=== PATIENT | male | born 1985 | race Caucasian/White ===

== ENCOUNTER 2019-03-12 20:57 | Emergency (ER) | payer OTHER ==
--- NOTE | 2019-03-12 22:52 | CRLCR ---
Indication: Chronic left shoulder pain. Technique: Left shoulder 4 views. Comparison: None Findings: Bones: Alignment is normal. No fractures or bone lesions. Joint spaces: Unremarkable. Soft tissues: Unremarkable. Impression: Unremarkable left shoulder. Dictated by Arnie Rosales MD @ Mar 12 2019 10:42PM Signed by Dr. Arnie Rosales @ Mar 12 2019 10:50PM
--- NOTE | 2019-03-12 23:02 | EDM.PDOC ---
ED HPI GENERAL MEDICAL PROBLEM - General Chief Complaint: Upper Extremity Injury/Pain Time Seen by Provider: 03/12/19 21:45 Source of Information: Reports: Patient History Limitations: Reports: No Limitations - History of Present Illness INITIAL COMMENTS - FREE TEXT/NARRATIVE: 33-year-old male with chronic left shoulder pain, worsening over the last several days. He's having trouble sleeping at night because of an intense pain on the lateral aspect of his left shoulder blade. No known injury. He's been to the chiropractor 4 times and it hasn't helped. Onset: Gradual Duration: Week(s): (Symptoms have been ongoing for weeks) Location: Reports: Upper Extremity, Left Quality: Reports: Pressure, Stabbing Worsens with: Reports: Movement (Certain ranges of motion in position) Associated Symptoms: Reports: No Other Symptoms left shoulder Pain Score (Numeric/FACES): 10 - Related Data Allergies Allergy/AdvReac Type Severity Reaction Status Date / Time NSAIDS (Non-Steroidal Allergy Other Verified 03/12/19 21:48 Anti-Inflamma Home Meds: Home Meds Acetaminophen [Pain Reliever] 1,000 mg PO BID 03/12/19 [History] Amphetamine/Dextroamphetamine [Adderall XR] 10 mg PO DAILY 03/12/19 [History] Ibuprofen [Advil] 800 mg PO BID 03/12/19 [History] Past Medical History Cardiovascular History: Reports: Other (See Below) Other Cardiovascular History: 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 Musculoskeletal History: Reports: Fracture Neurological History: Reports: Concussion Psychiatric History: Reports: ADHD - Past Surgical History Cardiovascular Surgical History: Reports: None Musculoskeletal Surgical History: Reports: Other (See Below) Other Musculoskeletal Surgeries/Procedures:: multiple shoulder dislocations Social & Family History - Tobacco Use Smoking Status *Q: Never Smoker - Caffeine Use Caffeine Use: Reports: None - Recreational Drug Use Recreational Drug Use: No Review of Systems - Review of Systems Review Of Systems: See Below Constitutional: Denies: Fever Respiratory: Reports: No Symptoms Cardiovascular: Reports: No Symptoms Skin: Reports: No Symptoms. Denies: Rash Neurological: Denies: Paresthesia Psychiatric: Reports: No Symptoms ED EXAM, GENERAL - Physical Exam Exam: See Below Exam Limited By: No Limitations General Appearance: Alert, No Apparent Distress Respiratory/Chest: No Respiratory Distress, Lungs Clear Cardiovascular: Regular Rate, Rhythm Back Exam: Other (There is palpation tenderness just lateral to the left scapula , no asymmetry or deformity) Extremities: Other (Patient has full active range of motion of the left shoulder but has some pain with external rotation) Neurological: No Motor/Sensory Deficits Course - Vital Signs Last Recorded V/S: Last Vital Signs Temp 97.3 F 03/12/19 21:46 Pulse 90 03/12/19 21:46 Resp 14 03/12/19 21:46 BP 121/79 03/12/19 21:46 Pulse Ox 97 03/12/19 21:46 - Re-Assessments/Exams Free Text/Narrative Re-Assessment/Exam: 03/13/19 02:35 A left shoulder x-ray is normal. Patient was given some Flexeril and 6 hydrocodone, a copy of the x-ray and told to follow-up with orthopedics when he returns home in 4 days. Departure - Departure Time of Disposition: 23:09 Disposition: Home, Self-Care 01 Clinical Impression: Chronic pain in left shoulder - Discharge Information Instructions: Shoulder Pain Referrals: PCP,None [Primary Care Provider] - Forms: ED Department Discharge Care Plan Goals: Take Flexeril up to 3 times daily for muscle relaxation and help with sleep. Stronger pain medication sparingly if needed. Recheck with your x-ray when you get home with an orthopedic physician.
== END 2019-03-12 23:09 | disposition home or self-care (01) ==
LOC: JP.ED 20:57
DX: M25.512 Pain in left shoulder (principal); G89.29 Other chronic pain; F90.9 Attention-deficit hyperactivity disorder, unspecified type; Z88.6 Allergy status to analgesic agent; Z79.899 Other long term (current) drug therapy
CPT/HCPCS: 73030-LT; 99283-25